=== PATIENT | female | born 1970 | race Caucasian/White ===

== ENCOUNTER 2016-09-02 20:41 | Emergency (ER) | payer MEDICARE, OTHER ==
--- NOTE | 2016-09-02 23:10 | DIAGNOSTIC IMAGING REPORT ---
PROCEDURE: XR ABD SERIES 2V ABD/1V CHEST INDICATION: ABDOMINAL PAIN TECHNIQUE: AP supine and upright views of the abdomen with single view of the chest. COMPARISON: None. FINDINGS: CHEST: Lungs are clear. Normal cardiovascular structures. Bony thorax is unremarkable. ABDOMEN: Bowel gas pattern is normal. Moderate stool. No soft-tissue masses or unusual calcifications. No evidence of free air. Osseous structures are unremarkable. IMPRESSION: 1. Negative acute abdominal series.
--- NOTE | 2016-09-02 23:48 | DIAGNOSTIC IMAGING REPORT ---
PROCEDURE: US ABDOMEN ULTRASOUND-LIMITED INDICATION: Abdominal pain, initial encounter TECHNIQUE: Edmonds scale and color Doppler sonographic images of the abdomen were obtained. COMPARISON: None. FINDINGS: Liver measures 16.4 cm with normal appearance. Gallbladder packed with gallstones. Difficult to visualize the gallbladder wall. CBD measures 2.8 mm. Negative Herring's sign. Normal body of the pancreas. Head and tail not well visualized. IVC is patent. Normal hepatopetal flow. Normal kidneys, both 10.6 cm. Ultrasound of the left upper quadrant demonstrates no evidence of a mass or inflammatory process. IMPRESSION: 1. Gallbladder packed with gallstones. Gallbladder wall not well visualized but negative Herring's sign and no biliary distention. 2. Negative left upper quadrant
--- NOTE | 2016-09-03 00:10 | ED ORDER SUMMARY ---
..... Patient: MARIANNE MCCALL OrderSheet [facility] VisitID: [id number] [place] [address] 45y, F Registration Date/Time: 09/02/2016 ORDER SHEET Weight: 81.6 kg (stated) Allergies: Codeine GENERAL ORDERS: Abd Series 2V Abd/1V Chest Urgent (21:02 09/02/2016 EKoroleva P.A.-C) (Ack 21:05 ALawrence ER Tech1) (21:47 MCampbell) Regional Construction Manager (Continuous) (21:02 09/02/2016 EKoroleva P.A.-C) (Ack 21:05 ALawrence ER Tech1) (21:19 AMcQuoid ER Tech1) Cardiac Panel Stat (21:02 09/02/2016 EKoroleva P.A.-C) (Ack 21:05 ALawrence ER Tech1) (21:53 DDavis R.N.) EKG - ER Stat (21:02 09/02/2016 EKoroleva P.A.-C) (Ack 21:05 ALawrence ER Tech1) (21:19 AMcQuoid ER Tech1) Lipase Urgent (21:03 09/02/2016 EKoroleva P.A.-C) (Ack 21:05 ALawrence ER Tech1) (21:34 DDavis R.N.) POC Glucose (21:03 09/02/2016 EKoroleva P.A.-C) (Ack 21:05 ALawrence ER Tech1) (21:19 AMcQuoid ER Tech1) Acetone, Serum Urgent (21:03 09/02/2016 EKoroleva P.A.-C) (Ack 21:05 ALawrence ER Tech1) (21:34 DDavis R.N.) UA-Culture if indicated Urgent (21:04 09/02/2016 EKoroleva P.A.-C) (Ack 21:05 ALawrence ER Tech1) (21:34 DDavis R.N.) Urine Urgent (21:04 09/02/2016 EKoroleva P.A.-C) (Ack 21:05 ALawrence ER Tech1) (21:34 DDavis R.N.) Vitals (BP) (21:06 09/02/2016 EKoroleva P.A.-C) (Ack 21:17 ALawrence ER Tech1) (21:34 DDavis R.N.) US Abdomen Limited (No) Urgent (22:29 09/02/2016 EKoroleva P.A.-C) (Ack 22:46 ALawrence ER Tech1) (0:00 TLewis R.N.) MEDICATION ORDERS: IV FLUIDS: Toradol IV 30 mg (NOW) (21:02 09/02/2016 EKoroleva P.A.-C) (22:13 DDavis R.N.) IV Saline Lock (21:02 09/02/2016 EKoroleva P.A.-C) (21:34 DDavis R.N.) Zofran IV 4 mg (NOW) (21:56 09/02/2016 EKoroleva P.A.-C) (22:13 DDavis R.N.) ORDER SHEET NOTES: [Electronically signed by Carlos Manuel Burton R.N. (00:18 09/03/2016)] [Electronically signed by Blake Cabrera Dr. (10:26 09/06/2016)] [Electronically locked/signed by Carlos Manuel Burton R.N. (00:18 09/03/2016)]
--- NOTE | 2016-09-03 00:10 | ED CLINICAL REPORT ---
Clinical Report - Physicians/Mid Levels [facility] [address] [place] [address] 09/02/2016 20:42 [id number] Time Seen: 20:55 Sep 02 2016. Arrived- By private vehicle. Historian- patient. HISTORY OF PRESENT ILLNESS Chief Complaint: FLANK PAIN. It is described as "pain" and it is described as located in the left flank. 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 The patient has had nausea. No vomiting or diarrhea. (patient reports left flank pain over the last 7 days worsening, with no associated nausea or vomiting. She reports she has been recently moving, had pain 3 days previously, then it went away and subsided 4 day, then has since returned. Denies any direct trauma or fall. Denies any shortness of breath or chest pain. Pain does worsen with deep inspiration. At times pain worsens with movement. No apparent association of pain to food. Denies any diarrhea, melena. Denies any change medications any recent foreign travel or any recent antibiotic use.). REVIEW OF SYSTEMS No constipation, black stools or stools, difficulty with urination or urinary frequency. No fever, headache, chest pain or difficulty breathing. All systems otherwise negative, except as recorded above. SOCIAL HISTORY Never smoker. No alcohol use or drug use. ADDITIONAL NOTES The nursing notes have been reviewed. PHYSICAL EXAM Vital Signs: 09/02/2016 20:53 BP: 191/77. HR: 77. RR: 18. O2 saturation: 100%. Temp: 98.4 F. Pain level now: 6/10. Appearance: Alert. No acute distress. Neck: Normal inspection. CVS: Normal heart rate and rhythm. Heart sounds normal. Respiratory: No respiratory distress. No respiratory distress. Breath sounds normal. Abdomen: Mild tenderness in the left side of the abdomen. No organomegaly. No mass. Scar present. Back: Normal inspection. No CVA tenderness. Skin: Skin warm. Normal skin color. LABS, X-RAYS, AND EKG EKG: EKG time: (2113). No acute process. No acute ischemia. Normal EKG. Rate: 65. Normal P waves. Normal GIDEON. Normal QRS complex. Normal axis. Normal ST and T waves and QT. The study has been interpreted contemporaneously. The study has been independently viewed by me. The EKG appears to be a good tracing. Abdominal Sonogram: Gallstones are present. Kidney normal. Spleen normal. No free fluid. . No gallbladder wall thickening, pericholecystic fluid, dilated common duct, common duct stones or hepatomegaly. The study was independently viewed by me and interpreted contemporaneously by me. Laboratory Tests: UA-Culture if indicated: (BONNIE: 09/02/2016 20:50) ( [facility] [place]:28[place] Final results Test Result Flag Units (Reference) URINE COLOR STRAW URINE APPEARANCE CLEAR URINE GLUCOSE NEGATIVE (NEGATIVE) URINE BILIRUBIN NEGATIVE (NEGATIVE) URINE KETONE NEGATIVE (NEGATIVE) URINE SPECIFIC GRAVITY <= 1.005 L (1.010-1.030) URINE PH 6.0 (5.0-8.0) URINE PROTEIN NEGATIVE (NEGATIVE) URINE UROBILINOGEN 0.2 EU/dL (0.2-1.0) URINE NITRITE NEGATIVE (NEGATIVE) URINE BLOOD TRACE-LYSED (NEGATIVE) URINE LEUK ESTERASE NEGATIVE (NEGATIVE) URINE RBC NONE SEEN rbc/hpf (0-1) URINE WBC NONE SEEN wbc/hpf (0-1) URINE EPITHELIAL CELLS RARE EPI/hpf (0-5) URINE BACTERIA NONE SEEN (NONE SEEN) URINE COMMENT CULT NOT INDICATED URINE CULTURES ARE SET-UP BASED ON THE FOLLOWING CRITERIA:POSITIVE NITRITEPOSITIVE LEUKOCYTE ESTERASEGREATER THAN 10 WHITE BLOOD CELLSMODERATE (2+) OR GREATER BACTERIA Urine: (BONNIE: 09/02/2016 20:50) ( [facility] [place] 21:25) Final results Test Result Flag Units (Reference) URINE NEGATIVE CBC w Diff: (BONNIE: 09/02/2016 21:35) ( [facility] [place] [facility] [place] 22:32) Final results Test Result Flag Units (Reference) WHITE BLOOD COUNT 6.1 K/uL (4.5-11.5) RED BLOOD COUNT 4.41 M/uL (4.00-5.20) HEMOGLOBIN 12.3 gm/dL (12.0-16.0) HEMATOCRIT 36.7 % (36.0-46.0) MEAN CELL VOLUME 83 fL (80-100) MEAN CORPUSCULAR HGB 28 pg (26-34) MEAN CORPUSCULAR HGB CONC 34 g/dL (31-37) RED CELL DISTRIBUTION WIDTH 14.1 % (11.6-14.8) PLATELET COUNT 277 K/uL (150-400) NEUTROPHIL % 49.9 L % (50-75) LYMPH % 36.3 % (25-40) MONO % 8.4 % (3-14) EOSINOPHIL % 4.5 H % (0-4) BASOPHIL % 0.9 % (0-2) Acetone, Serum: (BONNIE: 09/02/2016 21:35) ( [facility] [place] 21:54) Final results Test Result Flag Units (Reference) ACETONE, SERUM QUALITATIVE NEGATIVE (NEGATIVE) CHEM 13 PANEL: (BONNIE: 09/02/2016 21:35) ( [facility] [place] [facility] [place] 22:23) Final results Test Result Flag Units (Reference) GLUCOSE 176 H mg/dL (70-110) BUN 10 mg/dL (7-18) CREATININE 0.9 mg/dL (0.6-1.3) Estimated GFR >60 mL/min Estimated GFR- >60 mL/min Note: Persistent reduction over 3 months in eGFR<60 mL/min/1.73 m2 defines CKD. Patients with eGFR values>=60 mL/min/1.73 m2 may also have CKD if evidence ofpersistent proteinuria. Additional information may be foundat www.kidney.org. SODIUM 137 mmol/L (136-145) POTASSIUM 4.0 mmol/L (3.5-5.1) CHLORIDE 99 mmol/L (98-107) CARBON DIOXIDE 27 mmol/L (21-32) CALCIUM 9.8 mg/dL (8.5-10.1) TOTAL PROTEIN 8.4 H g/dL (6.4-8.2) ALBUMIN 4.6 g/dL (3.3-5.0) BILIRUBIN, TOTAL 0.3 mg/dL (0.0-1.0) ALKALINE PHOSPHATASE 71 U/L (46-116) AST (SGOT) 17 U/L (15-37) ALT (SGPT) 26 U/L (12-78) CPK 111 U/L (24-260) MAGNESIUM 2.0 mg/dL (1.8-2.4) LIPASE 197 U/L (73-393) TROPONIN I <0.05 L ng/mL (0.00-1.5) TROPONIN REFERENCE RANGE:<0.1 NEGATIVE0.1-1.5 INDETERMINANT>1.5 POSITIVE . PROGRESS AND PROCEDURES Course of Care: the patient is a pleasant 45 rolled female presenting for evaluation of left-sided flank pain. Pain is noted to be in the left upper quadrant on examination. Patient was initially evaluated by the mid-level provider. I had taken over care at the change of shift. Plan is follow-up on the patient's ultrasound. Rest of the patient's laboratory studies are unremarkable. Patient is nontoxic and in no acute distress. I performed my own independent examination and history. Agree with the assessment and plan. Ultrasound is remarkable for gallstones. Had discussion with patient in regards to biliary colic. The rest of the patient's laboratory studies are unremarkable. No signs of obstruction. Liver enzymes and pancreas enzymes are noted to be negative. The patient is a good outpatient candidate. Did not fill patient has a surgical abdomen at this time. Patient was encouraged to follow up with her surgeon in regards to further manage. Patient is able to tolerate by mouth in the emergency department. Because the patient is able to eat and drink while here in the emergency department, feel the patient is stable outpatient candidate. I discussed with patient her workup here in the emergency department as well as her diagnosis, home care, follow-up, and return precautions. All questions have been answered. The patient expressed understanding of these instructions and was agreeable to them. CLINICAL IMPRESSION Acute epigastric and left upper quadrant abdominal pain. 09/02/2016 23:15 BP: 118/81. HR: 82. RR: 18. O2 saturation: 99%. Moderate nausea with vomiting (acute). Blood pressure normal. Oxygen saturation normal. INSTRUCTIONS Warnings: GENERAL WARNINGS: Return or contact your physician immediately if your condition worsens or changes unexpectedly, if not improving as expected, or if other problems arise. SPECIFICALLY, return if you develop pain, fever, vomiting, the inability to keep fluids down, blood in vomitus, blood in diarrhea, fainting or lightheadedness. Prescription Medications: Zofran (orally disintegrating tablets) 4 mg: take 1 orally every 8 hours as needed for nausea and vomiting. Dispense ten (10). No refill. Substitution is permissible. Pepcid 20 mg: take 1 orally every 12 hours as needed for indigestion, upset stomach or heartburn. Dispense twenty (20). No refills. Substitution is permissible. Percocet 5 mg/325 mg: take 1 tablet orally every 6 hours as needed for pain. Dispense fifteen (15). No refill. Substitution is permissible. Follow-up: Return to the emergency department as needed. Follow up with your doctor in three days. Reason for referral: recheck today's concerns. Summary of care provided to patient via paper. Screening today revealed the patient's blood pressure to be in the normal range. The patient should follow up with a primary care provider for blood pressure management. Understanding of the discharge instructions verbalized by patient. (Electronically signed by Blake Cabrera Dr. 09/06/2016 10:26)
--- NOTE | 2016-09-03 00:10 | ED NURSING NOTES ---
Clinical Report - Nurses [facility] [address] [place] [address] 09/02/2016 20:42 Patient: MARIANNE MCCALL TRIAGE Triage time 20:53. Acuity: LEVEL 3. Chief Complaint: ABDOMINAL PAIN and NAUSEA. Alert. --21:03 Virgil Cheek R.N. 20:53 09/02/16. BP: 191/77. HR: 77. RR: 18 (regular and unlabored). O2 saturation: 100% on room air. Temp: 98.4 F (oral). Pain level now: 11/27. --21:03 Virgil Cheek R.N. Weight: 81.6 kg stated. Height/Length: 63 inches Per Patient. BMI: 31.9. --20:55 Virgil Cheek R.N. Allergies Codeine.(rash) --20:56 Virgil Cheek R.N. History Arrived by private vehicle. Historian: patient. ( pt states having left abdominal pain for 1 week with nausea). She has had nausea. Treatment HOSE TURNER: None. PAST MEDICAL HX: Denies current . SOCIAL HX: Never smoker. No alcohol use or drug use. No recent travel. NUTRITIONAL RISK ASSESSMENT: The nutritional risk assessment revealed no deficiencies. FUNCTIONAL ASSESSMENT: Functional assessment: no impairments noted. LEARNING NEEDS ASSESSMENT: The learning needs assessment revealed no barriers. SKIN INTEGRITY ASSESSMENT: Skin integrity risk assessment completed. No skin integrity risk identified. --21:03 Virgil Cheek R.N. PROBLEMS: Gallstone(s). Jaw Fracture. . Diabetes Mellitus. Migraine Headache. Chronic Headache. --21:02 Virgil Cheek R.N. Interventions ID band on patient. To treatment room. --21:03 Virgil Cheek R.N. PHYSICAL ASSESSMENT GENERAL / NEURO / PSYCH: Alert. Oriented X 4. RESPIRATORY: Respirations not labored. CVS: Capillary refill less than 2 seconds. --21:34 Virgil Cheek R.N. 21:34 09/02/16. BP: 123/69. HR: 73 (regular, normal rate and strong). RR: 20. O2 saturation: 100% on room air. Additional comments: NSR on monitor. --21:35 Virgil Cheek R.N. GENERAL / NEURO / PSYCH: Alert. Oriented X 4. HEENT: Mucous membranes are pink. RESPIRATORY: Respirations not labored. Breath sounds within normal limits. CVS: Normal sinus rhythm noted. Capillary refill less than 2 seconds. GI / : Abdomen soft. Abdominal tenderness in the left upper quadrant. Bowel sounds within normal limits. SKIN: Skin is warm and dry. --21:36 Virgil Cheek R.N. GENERAL / NEURO / PSYCH: Alert. Oriented X 4. --23:15 Virgil Cheek R.N. 23:15 09/02/16. BP: 118/81. HR: 82 (regular and normal rate). RR: 18. O2 saturation: 99% on room air. --23:15 Virgil Cheek R.N. NURSING PROGRESS NOTES 21:34 09/02/2016 Site #1 started via IV in the left antecubital space with an 20g angiocath; two attempts. Blood drawn: rainbow set. Labeled in the presence of the patient and sent to the lab. Saline lock flushed with saline. --21:34 Virgil Cheek R.N. monitoring tech, pulse oximeter and NIBP monitor placed on patient; monitor alarms on. Patient gowned. Head of bed elevated. Reassurance given. Two patient identifiers checked. Call light placed in reach. Side rails up x 1. Bed placed in lowest position. Brakes of bed on. Patient ready for evaluation- chart flagged. --21:36 Virgil Cheek R.N. 22:09/02/2016 Toradol IVP 30 mg given over 1 minute(s) via site #1. Allergies verified and confirmed 5 rights. IV patency established. IV site checked: no pain, redness, or swelling. IV flushed thoroughly pre- and post-medication administration. --22:13 Virgil Cheek R.N. 22:09/02/2016 Zofran (Ondansetron HCl) IVP 4 mg given over 1 minute(s) via site #1. --22:13 Virgil Cheek R.N. ( Blood sugar POC result at bedside = 191). --22:15 Virgil Cheek R.N. Point of care testing: performed by [email or web address]. Glucose: 191. --22:17 Virgil Cheek R.N. DISPOSITION / DISCHARGE 00:16 09/03/2016 Site #1 removed upon discharge. Catheter intact. Bandaid applied. --00:16 Carlos Manuel Burton R.N. Condition at departure: improved. No learning barriers present. Discharge instructions provided and reviewed with the patient. Reviewed medication(s) side effects, precautions, dosing and course information. Prescription(s) given to the patient (Zofran, Pepcid, Percocet). Patient verbalized understanding. Written instructions provided in Georgian. The patient was discharged by the physician. She was discharged home and unaccompanied at time of discharge. She left the Emergency Department ambulatory and via private vehicle. Patient driving. --00:18 Carlos Manuel Burton R.N. 00:16 09/03/16. BP: 122/79. HR: 85. RR: 18. O2 saturation: 100%. Pain level now 08/27. --00:18 Carlos Manuel Burton R.N. Departure time: 00:18. --00:18 Carlos Manuel Burton R.N. Locked/Released at 09/03/2016 0:18 by Carlos Manuel Burton R.N.
--- NOTE | 2016-09-03 00:10 | ED CLINICAL REPORT ---
Clinical Report - Physicians/Mid Levels [facility] [address] [place] [address] 09/02/2016 20:42 Patient: [id number] Time Seen: 20:55 Sep 02 2016. Arrived- By private vehicle. Historian- patient. HISTORY OF PRESENT ILLNESS Chief Complaint: FLANK PAIN. It is described as "pain" and it is described as located in the left flank. This started 7 - 10 days [place] and is still present. The patient has had nausea. No vomiting or diarrhea. (patient reports left flank pain over the last 7 days worsening, with no associated nausea or vomiting. She reports she has been recently moving, had pain 3 days previously, then it went away and subsided 4 day, then has since returned. Denies any direct trauma or fall. Denies any shortness of breath or chest pain. Pain does worsen with deep inspiration. At times pain worsens with movement. No apparent association of pain to food. Denies any diarrhea, melena. Denies any change medications any recent foreign travel or any recent antibiotic use.). REVIEW OF SYSTEMS No constipation, black stools or stools, difficulty with urination or urinary frequency. No fever, headache, chest pain or difficulty breathing. All systems otherwise negative, except as recorded above. SOCIAL HISTORY Never smoker. No alcohol use or drug use. ADDITIONAL NOTES The nursing notes have been reviewed. PHYSICAL EXAM Vital Signs: 09/02/2016 20:53 BP: 191/77. HR: 77. RR: 18. O2 saturation: 100%. Temp: 98.4 F. Pain level now: 6/10. Appearance: Alert. No acute distress. Neck: Normal inspection. CVS: Normal heart rate and rhythm. Heart sounds normal. Respiratory: No respiratory distress. No respiratory distress. Breath sounds normal. Abdomen: Mild tenderness in the left side of the abdomen. No organomegaly. No mass. Scar present. Back: Normal inspection. No CVA tenderness. Skin: Skin warm. Normal skin color. LABS, X-RAYS, AND EKG EKG: EKG time: (2113). No acute process. No acute ischemia. Normal EKG. Rate: 65. Normal P waves. Normal GIDEON. Normal QRS complex. Normal axis. Normal ST and T waves and QT. The study has been interpreted contemporaneously. The study has been independently viewed by me. The EKG appears to be a good tracing. Abdominal Sonogram: Gallstones are present. Kidney normal. Spleen normal. No free fluid. . No gallbladder wall thickening, pericholecystic fluid, dilated common duct, common duct stones or hepatomegaly. The study was independently viewed by me and interpreted contemporaneously by me. Laboratory Tests: UA-Culture if indicated: (BONNIE: 09/02/2016 20:50) ( [facility] 09/02/2016 21:28) Final results Test Result Flag Units (Reference) URINE COLOR STRAW URINE APPEARANCE CLEAR URINE GLUCOSE NEGATIVE (NEGATIVE) URINE BILIRUBIN NEGATIVE (NEGATIVE) URINE KETONE NEGATIVE (NEGATIVE) URINE SPECIFIC GRAVITY <= 1.005 L (1.010-1.030) URINE PH 6.0 (5.0-8.0) URINE PROTEIN NEGATIVE (NEGATIVE) URINE UROBILINOGEN 0.2 EU/dL (0.2-1.0) URINE NITRITE NEGATIVE (NEGATIVE) URINE BLOOD TRACE-LYSED (NEGATIVE) URINE LEUK ESTERASE NEGATIVE (NEGATIVE) URINE RBC NONE SEEN rbc/hpf (0-1) URINE WBC NONE SEEN wbc/hpf (0-1) URINE EPITHELIAL CELLS RARE EPI/hpf (0-5) URINE BACTERIA NONE SEEN (NONE SEEN) URINE COMMENT CULT NOT INDICATED URINE CULTURES ARE SET-UP BASED ON THE FOLLOWING CRITERIA:POSITIVE NITRITEPOSITIVE LEUKOCYTE ESTERASEGREATER THAN 10 WHITE BLOOD CELLSMODERATE (2+) OR GREATER BACTERIA Urine: (BONNIE: 09/02/2016 20:50) ( [facility] 09/02/2016 21:25) Final results Test Result Flag Units (Reference) URINE NEGATIVE CBC w Diff: (BONNIE: 09/02/2016 21:35) ( [facility] 09/02/2016 22:32) Final results Test Result Flag Units (Reference) WHITE BLOOD COUNT 6.1 K/uL (4.5-11.5) RED BLOOD COUNT 4.41 M/uL (4.00-5.20) HEMOGLOBIN 12.3 gm/dL (12.0-16.0) HEMATOCRIT 36.7 % (36.0-46.0) MEAN CELL VOLUME 83 fL (80-100) MEAN CORPUSCULAR HGB 28 pg (26-34) MEAN CORPUSCULAR HGB CONC 34 g/dL (31-37) RED CELL DISTRIBUTION WIDTH 14.1 % (11.6-14.8) PLATELET COUNT 277 K/uL (150-400) NEUTROPHIL % 49.9 L % (50-75) LYMPH % 36.3 % (25-40) MONO % 8.4 % (3-14) EOSINOPHIL % 4.5 H % (0-4) BASOPHIL % 0.9 % (0-2) Acetone, Serum: (BONNIE: 09/02/2016 21:35) ( [facility] 09/02/2016 21:54) Final results Test Result Flag Units (Reference) ACETONE, SERUM QUALITATIVE NEGATIVE (NEGATIVE) CHEM 13 PANEL: (BONNIE: 09/02/2016 21:35) ( [facility] 09/02/2016 22:23) Final results Test Result Flag Units (Reference) GLUCOSE 176 H mg/dL (70-110) BUN 10 mg/dL (7-18) CREATININE 0.9 mg/dL (0.6-1.3) Estimated GFR >60 mL/min Estimated GFR- >60 mL/min Note: Persistent reduction over 3 months in eGFR<60 mL/min/1.73 m2 defines CKD. Patients with eGFR values>=60 mL/min/1.73 m2 may also have CKD if evidence ofpersistent proteinuria. Additional information may be foundat www.kidney.org. SODIUM 137 mmol/L (136-145) POTASSIUM 4.0 mmol/L (3.5-5.1) CHLORIDE 99 mmol/L (98-107) CARBON DIOXIDE 27 mmol/L (21-32) CALCIUM 9.8 mg/dL (8.5-10.1) TOTAL PROTEIN 8.4 H g/dL (6.4-8.2) ALBUMIN 4.6 g/dL (3.3-5.0) BILIRUBIN, TOTAL 0.3 mg/dL (0.0-1.0) ALKALINE PHOSPHATASE 71 U/L (46-116) AST (SGOT) 17 U/L (15-37) ALT (SGPT) 26 U/L (12-78) CPK 111 U/L (24-260) MAGNESIUM 2.0 mg/dL (1.8-2.4) LIPASE 197 U/L (73-393) TROPONIN I <0.05 L ng/mL (0.00-1.5) TROPONIN REFERENCE RANGE:<0.1 NEGATIVE0.1-1.5 INDETERMINANT>1.5 POSITIVE . PROGRESS AND PROCEDURES Course of Care: the patient is a pleasant 45 rolled female presenting for evaluation of left-sided flank pain. Pain is noted to be in the left upper quadrant on examination. Patient was initially evaluated by the mid-level provider. I had taken over care at the change of shift. Plan is follow-up on the patient's ultrasound. Rest of the patient's laboratory studies are unremarkable. Patient is nontoxic and in no acute distress. I performed my own independent examination and history. Agree with the assessment and plan. Ultrasound is remarkable for gallstones. Had discussion with patient in regards to biliary colic. The rest of the patient's laboratory studies are unremarkable. No signs of obstruction. Liver enzymes and pancreas enzymes are noted to be negative. The patient is a good outpatient candidate. Did not fill patient has a surgical abdomen at this time. Patient was encouraged to follow up with her surgeon in regards to further manage. Patient is able to tolerate by mouth in the emergency department. Because the patient is able to eat and drink while here in the emergency department, feel the patient is stable outpatient candidate. I discussed with patient her workup here in the emergency department as well as her diagnosis, home care, follow-up, and return precautions. All questions have been answered. The patient expressed understanding of these instructions and was agreeable to them. CLINICAL IMPRESSION Acute epigastric and left upper quadrant abdominal pain. 09/02/2016 23:15 BP: 118/81. HR: 82. RR: 18. O2 saturation: 99%. Moderate nausea with vomiting (acute). Blood pressure normal. Oxygen saturation normal. INSTRUCTIONS Warnings: GENERAL WARNINGS: Return or contact your physician immediately if your condition worsens or changes unexpectedly, if not improving as expected, or if other problems arise. SPECIFICALLY, return if you develop pain, fever, vomiting, the inability to keep fluids down, blood in vomitus, blood in diarrhea, fainting or lightheadedness. Prescription Medications: Zofran (orally disintegrating tablets) 4 mg: take 1 orally every 8 hours as needed for nausea and vomiting. Dispense ten (10). No refill. Substitution is permissible. Pepcid 20 mg: take 1 orally every 12 hours as needed for indigestion, upset stomach or heartburn. Dispense twenty (20). No refills. Substitution is permissible. Percocet 5 mg/325 mg: take 1 tablet orally every 6 hours as needed for pain. Dispense fifteen (15). No refill. Substitution is permissible. Follow-up: Return to the emergency department as needed. Follow up with your doctor in three days. Reason for referral: recheck today's concerns. Summary of care provided to patient via paper. Screening today revealed the patient's blood pressure to be in the normal range. The patient should follow up with a primary care provider for blood pressure management. Understanding of the discharge instructions verbalized by patient. (Electronically signed by Blake Cabrera Dr. 09/06/2016 10:26)
--- NOTE | 2016-09-03 00:10 | ED ORDER SUMMARY ---
..... Patient: MARIANNE MCCALL OrderSheet [facility] VisitID: [id number] [place] [address] 45y, F Registration Date/Time: 09/02/2016 ORDER SHEET Weight: 81.6 kg (stated) Allergies: Codeine GENERAL ORDERS: Abd Series 2V Abd/1V Chest Urgent (21:02 09/02/2016 EKoroleva P.A.-C) (Ack 21:05 ALawrence ER Tech1) (21:47 MCampbell) Turner Machine (Continuous) (21:02 09/02/2016 EKoroleva P.A.-C) (Ack 21:05 ALawrence ER Tech1) (21:19 AMcQuoid ER Tech1) Cardiac Panel Stat (21:02 09/02/2016 EKoroleva P.A.-C) (Ack 21:05 ALawrence ER Tech1) (21:53 DDavis R.N.) EKG - ER Stat (21:02 09/02/2016 EKoroleva P.A.-C) (Ack 21:05 ALawrence ER Tech1) (21:19 AMcQuoid ER Tech1) Lipase Urgent (21:03 09/02/2016 EKoroleva P.A.-C) (Ack 21:05 ALawrence ER Tech1) (21:34 DDavis R.N.) POC Glucose (21:03 09/02/2016 EKoroleva P.A.-C) (Ack 21:05 ALawrence ER Tech1) (21:19 AMcQuoid ER Tech1) Acetone, Serum Urgent (21:03 09/02/2016 EKoroleva P.A.-C) (Ack 21:05 ALawrence ER Tech1) (21:34 DDavis R.N.) UA-Culture if indicated Urgent (21:04 09/02/2016 EKoroleva P.A.-C) (Ack 21:05 ALawrence ER Tech1) (21:34 DDavis R.N.) Urine Urgent (21:04 09/02/2016 EKoroleva P.A.-C) (Ack 21:05 ALawrence ER Tech1) (21:34 DDavis R.N.) Vitals (BP) (21:06 09/02/2016 EKoroleva P.A.-C) (Ack 21:17 ALawrence ER Tech1) (21:34 DDavis R.N.) US Abdomen Limited (No) Urgent (22:29 09/02/2016 EKoroleva P.A.-C) (Ack 22:46 ALawrence ER Tech1) (0:00 TLewis R.N.) MEDICATION ORDERS: IV FLUIDS: Toradol IV 30 mg (NOW) (21:02 09/02/2016 EKoroleva P.A.-C) (22:13 DDavis R.N.) IV Saline Lock (21:02 09/02/2016 EKoroleva P.A.-C) (21:34 DDavis R.N.) Zofran IV 4 mg (NOW) (21:56 09/02/2016 EKoroleva P.A.-C) (22:13 DDavis R.N.) ORDER SHEET NOTES: [Electronically signed by Carlos Manuel Burton R.N. (00:18 09/03/2016)] [Electronically signed by Blake Cabrera Dr. (10:26 09/06/2016)] [Electronically locked/signed by Carlos Manuel Burton R.N. (00:18 09/03/2016)]
--- NOTE | 2016-09-03 00:10 | ED NURSING NOTES ---
Clinical Report - Nurses [facility] [address] [place] [address] 09/02/2016 20:42 Patient: MARIANNE MCCALL TRIAGE Triage time 20:53. Acuity: LEVEL 3. Chief Complaint: ABDOMINAL PAIN and NAUSEA. Alert. --21:03 Virgil Cheek R.N. 20:53 09/02/16. BP: 191/77. HR: 77. RR: 18 (regular and unlabored). O2 saturation: 100% on room air. Temp: 98.4 F (oral). Pain level now: 11/27. --21:03 Virgil Cheek R.N. Weight: 81.6 kg stated. Height/Length: 63 inches Per Patient. BMI: 31.9. --20:55 Virgil Cheek R.N. Allergies Codeine.(rash) --20:56 Virgil Cheek R.N. History Arrived by private vehicle. Historian: patient. ( pt states having left abdominal pain for 1 week with nausea). She has had nausea. Treatment STAFF RN: None. PAST MEDICAL HX: Denies current . SOCIAL HX: Never smoker. No alcohol use or drug use. No recent travel. NUTRITIONAL RISK ASSESSMENT: The nutritional risk assessment revealed no deficiencies. FUNCTIONAL ASSESSMENT: Functional assessment: no impairments noted. LEARNING NEEDS ASSESSMENT: The learning needs assessment revealed no barriers. SKIN INTEGRITY ASSESSMENT: Skin integrity risk assessment completed. No skin integrity risk identified. --21:03 Virgil Cheek R.N. PROBLEMS: Gallstone(s). Jaw Fracture. . Diabetes Mellitus. Migraine Headache. Chronic Headache. --21:02 Virgil Cheek R.N. Interventions ID band on patient. To treatment room. --21:03 Virgil Cheek R.N. PHYSICAL ASSESSMENT GENERAL / NEURO / PSYCH: Alert. Oriented X 4. RESPIRATORY: Respirations not labored. CVS: Capillary refill less than 2 seconds. --21:34 Virgil Cheek R.N. 21:34 09/02/16. BP: 123/69. HR: 73 (regular, normal rate and strong). RR: 20. O2 saturation: 100% on room air. Additional comments: NSR on monitor. --21:35 Virgil Cheek R.N. GENERAL / NEURO / PSYCH: Alert. Oriented X 4. HEENT: Mucous membranes are pink. RESPIRATORY: Respirations not labored. Breath sounds within normal limits. CVS: Normal sinus rhythm noted. Capillary refill less than 2 seconds. GI / : Abdomen soft. Abdominal tenderness in the left upper quadrant. Bowel sounds within normal limits. SKIN: Skin is warm and dry. --21:36 Virgil Cheek R.N. GENERAL / NEURO / PSYCH: Alert. Oriented X 4. --23:15 Virgil Cheek R.N. 23:15 09/02/16. BP: 118/81. HR: 82 (regular and normal rate). RR: 18. O2 saturation: 99% on room air. --23:15 Virgil Cheek R.N. NURSING PROGRESS NOTES 21:34 09/02/2016 Site #1 started via IV in the left antecubital space with an 20g angiocath; two attempts. Blood drawn: rainbow set. Labeled in the presence of the patient and sent to the lab. Saline lock flushed with saline. --21:34 Virgil Cheek R.N. petroleum refinery operator, pulse oximeter and NIBP monitor placed on patient; monitor alarms on. Patient gowned. Head of bed elevated. Reassurance given. Two patient identifiers checked. Call light placed in reach. Side rails up x 1. Bed placed in lowest position. Brakes of bed on. Patient ready for evaluation- chart flagged. --21:36 Virgil Cheek R.N. 22:09/02/2016 Toradol IVP 30 mg given over 1 minute(s) via site #1. Allergies verified and confirmed 5 rights. IV patency established. IV site checked: no pain, redness, or swelling. IV flushed thoroughly pre- and post-medication administration. --22:13 Virgil Cheek R.N. 22:09/02/2016 Zofran (Ondansetron HCl) IVP 4 mg given over 1 minute(s) via site #1. --22:13 Virgil Cheek R.N. ( Blood sugar POC result at bedside = 191). --22:15 Virgil Cheek R.N. Point of care testing: performed by [facility]. Glucose: 191. --22:17 Virgil Cheek R.N. DISPOSITION / DISCHARGE 00:16 09/03/2016 Site #1 removed upon discharge. Catheter intact. Bandaid applied. --00:16 Carlos Manuel Burton R.N. Condition at departure: improved. No learning barriers present. Discharge instructions provided and reviewed with the patient. Reviewed medication(s) side effects, precautions, dosing and course information. Prescription(s) given to the patient (Zofran, Pepcid, Percocet). Patient verbalized understanding. Written instructions provided in [place]. The patient was discharged by the physician. She was discharged home and unaccompanied at time of discharge. She left the Emergency Department ambulatory and via private vehicle. Patient driving. --00:18 Carlos Manuel Burton R.N. 00:16 09/03/16. BP: 122/79. HR: 85. RR: 18. O2 saturation: 100%. Pain level now 08/27. --00:18 Carlos Manuel Burton R.N. Departure time: 00:18. --00:18 Carlos Manuel Burton R.N. Locked/Released at 09/03/2016 0:18 by Carlos Manuel Burton R.N.
--- NOTE | 2016-09-06 10:27 | ED MED RECONCILIATION SUMMARY ---
Patient: MARIANNE MCCALL Medication Reconciliation Report [facility] VisitID: [id number] [place] [address] 45y, F Registration Date/Time: 09/02/2016 Weight: 81.6 kg Height/Length: 63 in. BMI: 31.9 ALLERGIES: Codeine The patient's Home Medications are listed below: Not obtained. The source(s) of the original Home Medication information: Not obtained. The following Medications were given to the patient in the Emergency Department: Toradol [IVP] IVP 30 mg, administered: 09/02/2016 10:03:00 PM Zofran [IVP] IVP 4 mg, administered: 09/02/2016 10:03:00 PM The following Medications were prescribed to the patient: Zofran (orally disintegrating tablets) 4 mg: take 1 orally every 8 hours as needed for nausea and vomiting. Dispense ten (10). No refill. Substitution is permissible. -- Blake Cabrera Dr. Pepcid 20 mg: take 1 orally every 12 hours as needed for indigestion, upset stomach or heartburn. Dispense twenty (20). No refills. Substitution is permissible. -- Blake Cabrera Dr. Percocet 5 mg/325 mg: take 1 tablet orally every 6 hours as needed for pain. Dispense fifteen (15). No refill. Substitution is permissible. -- Blake Cabrera Dr.
--- NOTE | 2016-09-06 10:27 | ED MAR SUMMARY ---
..... Medication Administration Record [facility] [address] [place] [place] [address] Patient: MARIANNE MCCALL Visit ID: [id number] 45y, F Weight: 81.6 kg Height/Length: 63 in BMI: 31.9 ALLERGIES: Codeine Given 22:09/02/2016 Virgil Cheek R.N. Medication Administered: TORADOL [IVP], Dose: 30 mg IVP over 1 minute(s), Site: #1 left AC. Medication Ordered: Toradol IV 30 mg (NOW). Given 22:03 09/02/2016 Virgil Cheek R.N. Medication Administered: ZOFRAN [IVP] (ONDANSETRON HCL), Dose: 4 mg IVP over 1 minute(s), Site: #1 left AC. Medication Ordered: Zofran IV 4 mg (NOW).
--- NOTE | 2016-09-06 10:27 | ED DISCHARGE INSTRUCTIONS ---
Patient: MARIANNE MCCALL General Instructions [facility] VisitID: [id number] [place] [address] 45y, F Registration Date/Time: 09/02/2016 Acute epigastric and left upper quadrant abdominal pain. 09/02/2016 23:15 BP: 118/81. HR: 82. RR: 18. O2 saturation: 99%. Moderate nausea with vomiting (acute). Blood pressure normal. Oxygen saturation normal. INSTRUCTIONS Warnings: GENERAL WARNINGS: Return or contact your physician immediately if your condition worsens or changes unexpectedly, if not improving as expected, or if other problems arise. SPECIFICALLY, return if you develop pain, fever, vomiting, the inability to keep fluids down, blood in vomitus, blood in diarrhea, fainting or lightheadedness. Prescription Medications: Zofran (orally disintegrating tablets) 4 mg: take 1 orally every 8 hours as needed for nausea and vomiting. Dispense ten (10). No refill. Substitution is permissible. Pepcid 20 mg: take 1 orally every 12 hours as needed for indigestion, upset stomach or heartburn. Dispense twenty (20). No refills. Substitution is permissible. Percocet 5 mg/325 mg: take 1 tablet orally every 6 hours as needed for pain. Dispense fifteen (15). No refill. Substitution is permissible. Follow-up: Return to the emergency department as needed. Follow up with your doctor in three days. Reason for referral: recheck today's concerns. Summary of care provided to patient via paper. Screening today revealed the patient's blood pressure to be in the normal range. The patient should follow up with a primary care provider for blood pressure management. Understanding of the discharge instructions verbalized by patient. ADDITIONAL INFORMATION Abdominal Pain, Unknown Cause (Female) The exact cause of your abdominal (stomach) pain is not certain. This does not mean that this is something to worry about, or the right tests were not done. Everyone likes to know the exact cause of the problem, but sometimes with abdominal pain, there is no clear-cut cause, and this could be a good thing. The good news is that your symptoms can be treated, and you will feel better. Your condition does not seem serious now; however, sometimes the signs of a serious problem may take more time to appear. For this reason,it is important for you to watch for any new symptoms, problems,or worsening of your condition. Over the next few days, the abdominal pain may come and go, or be continuous. Other common symptoms can include nausea and vomiting. Sometimes it can be difficult to tell if you feel nauseous, you may just feel bad and not associate that feeling with nausea. Constipation, diarrhea, and a fever may go along with the pain. The pain may continue even if treated correctly over the following days. Depending on how things go, sometimes the cause can become clear and may require further or different treatment. Additional evaluations, medications, or tests may be needed. Home care Your health care provider may prescribe medications for pain, symptoms, or an infection. Follow the health care provider's instructions for taking these medications. General care Rest until your next exam. No strenuous activities. Try to find positions that ease discomfort. A small pillow placed on the abdomen may help relieve pain. Something warm on your abdomen (such as a heating pad) may help, but be careful not to burn yourself. Diet Do not force yourself to eat, especially if having cramps, vomiting, or diarrhea. Water is important so you do not get dehydrated. Soup may also be good. Sports drinks may also help, especially if they are not too acidic. Make sure you don't drink sugary drinks as this can make things worse. Take liquids in small amounts. Do not guzzle them. Caffeine sometimes makes the pain and cramping worse. Avoid dairy products if you have vomiting or diarrhea. Don't eat large amounts at a time. Wait a few minutes between bites. Eat a diet low in fiber (called a low-residue diet). Foods allowed include refined breads, white rice, fruit and vegetable juices without pulp, tender meats. These foods will pass more easily through the intestine. Avoid whole-grain foods, whole fruits and vegetables, meats, seeds and nuts, fried or fatty foods, dairy, alcohol and spicy foods until your symptoms go away. Follow-up care Follow up with your health care provider as instructed, or if your pain does not begin to improve in the next 24 hours. When to seek medical care Seek prompt medical care if any of the following occur: Pain gets worse or moves to the right lower abdomen New or worsening vomiting or diarrhea Swelling of the abdomen Unable to pass stool for more than three days Fever of 100.4F (38C) or higher, or as directed by your healthcare provider. Blood in vomit or bowel movements (dark red or black color) Jaundice (yellow color of eyes and skin) Weakness, dizziness Chest, arm, back, neck or jaw pain Unexpected vaginal bleeding or missed period Call 911 Call emergency services if any of the following occur: Trouble breathing Confusion Fainting or loss of consciousness Rapid heart rate Seizure Ondansetron Oral disintegrating tablet What is this medicine? ONDANSETRON (on NASIM se kenia) is used to treat nausea and vomiting caused by chemotherapy. It is also used to prevent or treat nausea and vomiting after surgery. How should I use this medicine? These tablets are made to dissolve in the mouth. Do not try to push the tablet through the foil backing. With dry hands, peel away the foil backing and gently remove the tablet. Place the tablet in the mouth and allow it to dissolve, then swallow. While you may take these tablets with water, it is not necessary to do so. Talk to your inter com servicer regarding the use of this medicine in children. Special care may be needed. What side effects may I notice from receiving this medicine? Side effects that you should report to your doctor or health personal care service provider as soon as possible: allergic reactions like skin rash, itching or hives, swelling of the face, lips, or tongue breathing problems dizziness fast or irregular heartbeat feeling faint or lightheaded, falls fever and chills swelling of the hands and feet tightness in the chest Side effects that usually do not require medical attention (report to your doctor or health personal care service provider if they continue or are bothersome): constipation or diarrhea headache What may interact with this medicine? Do not take this medicine with any of the following medications: -apomorphine -cisapride -dofetilide -dronedarone -pimozide -thioridazine -ziprasidone This medicine may also interact with the following medications: -carbamazepine -phenytoin -rifampicin -tramadol -other medicines that prolong the QT interval (cause an abnormal heart rhythm) What if I miss a dose? If you miss a dose, take it as soon as you can. If it is almost time for your next dose, take only that dose. Do not take double or extra doses. Where should I keep my medicine? Keep out of the reach of children. Store between 2 and 30 degrees C (36 and 86 degrees F). Throw away any unused medicine after the expiration date. What should I tell my health care provider before I take this medicine? They need to know if you have any of these conditions: heart disease history of irregular heartbeat liver disease low levels of magnesium or potassium in the blood an unusual or allergic reaction to ondansetron, granisetron, other medicines, foods, dyes, or preservatives or trying to get breast-feeding What should I watch for while using this medicine? Check with your doctor or health personal care service provider as soon as you can if you have any sign of an allergic reaction. Famotidine Oral tablet What is this medicine? FAMOTIDINE (fa VINAYAK batista) is a type of antihistamine that blocks the release of stomach acid. It is used to treat stomach or intestinal ulcers. It can also relieve heartburn from acid reflux. How should I use this medicine? Take this medicine by mouth with a glass of water. Follow the directions on the prescription label. If you only take this medicine once a day, take it at bedtime. Take your doses at regular intervals. Do not take your medicine more often than directed. Talk to your inter com servicer regarding the use of this medicine in children. Special care may be needed. What side effects may I notice from receiving this medicine? Side effects that you should report to your doctor or health personal care service provider as soon as possible: agitation, nervousness confusion hallucinations skin rash, itching Side effects that usually do not require medical attention (report to your doctor or health personal care service provider if they continue or are bothersome): constipation diarrhea dizziness headache What may interact with this medicine? delavirdine itraconazole ketoconazole What if I miss a dose? If you miss a dose, take it as soon as you can. If it is almost time for your next dose, take only that dose. Do not take double or extra doses. Where should I keep my medicine? Keep out of the reach of children. Store at room temperature between 15 and 30 degrees C (59 and 86 degrees F). Do not freeze. Throw away any unused medicine after the expiration date. What should I tell my health care provider before I take this medicine? They need to know if you have any of these conditions: kidney or liver disease trouble swallowing an unusual or allergic reaction to famotidine, other medicines, foods, dyes, or preservatives or trying to get breast-feeding What should I watch for while using this medicine? Tell your doctor or health personal care service provider if your condition does not start to get better or if it gets worse. Finish the full course of tablets prescribed, even if you feel better. Do not take with aspirin, ibuprofen or other antiinflammatory medicines. These can make your condition worse. Do not smoke cigarettes or drink alcohol. These cause irritation in your stomach and can increase the time it will take for ulcers to heal. If you get black, tarry stools or vomit up what looks like coffee grounds, call your doctor or health personal care service provider at once. You may have a bleeding ulcer. Oxycodone Hydrochloride, Acetaminophen Oral tablet What is this medicine? ACETAMINOPHEN; OXYCODONE (a set a ROBYN lloyd fen; ox i KOE done) is a pain reliever. It is used to treat mild to moderate pain. How should I use this medicine? Take this medicine by mouth with a full glass of water. Follow the directions on the prescription label. Take your medicine at regular intervals. Do not take your medicine more often than directed. Talk to your inter com servicer regarding the use of this medicine in children. Special care may be needed. Patients over 65 years old may have a stronger reaction and need a smaller dose. What side effects may I notice from receiving this medicine? Side effects that you should report to your doctor or health personal care service provider as soon as possible: allergic reactions like skin rash, itching or hives, swelling of the face, lips, or tongue breathing difficulties, wheezing confusion light headedness or fainting spells severe stomach pain yellowing of the skin or the whites of the eyes Side effects that usually do not require medical attention (report to your doctor or health personal care service provider if they continue or are bothersome): dizziness drowsiness nausea vomiting What may interact with this medicine? alcohol antihistamines barbiturates like amobarbital, butalbital, butabarbital, methohexital, pentobarbital, phenobarbital, thiopental, and secobarbital benztropine drugs for bladder problems like solifenacin, trospium, oxybutynin, tolterodine, hyoscyamine, and methscopolamine drugs for breathing problems like ipratropium and tiotropium drugs for certain stomach or intestine problems like propantheline, homatropine methylbromide, glycopyrrolate, atropine, belladonna, and dicyclomine general anesthetics like etomidate, ketamine, nitrous oxide, propofol, desflurane, enflurane, halothane, isoflurane, and sevoflurane medicines for depression, anxiety, or psychotic disturbances medicines for sleep muscle relaxants naltrexone narcotic medicines (opiates) for pain phenothiazines like perphenazine, thioridazine, chlorpromazine, mesoridazine, fluphenazine, prochlorperazine, promazine, and trifluoperazine scopolamine tramadol trihexyphenidyl What if I miss a dose? If you miss a dose, take it as soon as you can. If it is almost time for your next dose, take only that dose. Do not take double or extra doses. Where should I keep my medicine? Keep out of the reach of children. This medicine can be abused. Keep your medicine in a safe place to protect it from theft. Do not share this medicine with anyone. Selling or giving away this medicine is dangerous and against the law. Store at room temperature between 20 and 25 degrees C (68 and 77 degrees F). Keep container tightly closed. Protect from light. This medicine may cause accidental overdose and if it is taken by other adults, children, or pets. Flush any unused medicine down the toilet to reduce the chance of harm. Do not use the medicine after the expiration date. What should I tell my health care provider before I take this medicine? They need to know if you have any of these conditions: brain tumor Crohn's disease, inflammatory bowel disease, or ulcerative colitis drink more than 3 alcohol containing drinks per day drug abuse or addiction head injury heart or circulation problems kidney disease or problems going to the bathroom liver disease lung disease, asthma, or breathing problems an unusual or allergic reaction to acetaminophen, oxycodone, other opioid analgesics, other medicines, foods, dyes, or preservatives or trying to get breast-feeding What should I watch for while using this medicine? Tell your doctor or health personal care service provider if your pain does not go away, if it gets worse, or if you have new or a different type of pain. You may develop tolerance to the medicine. Tolerance means that you will need a higher dose of the medication for pain relief. Tolerance is normal and is expected if you take this medicine for a long time. Do not suddenly stop taking your medicine because you may develop a severe reaction. Your body becomes used to the medicine. This does NOT mean you are addicted. Addiction is a behavior related to getting and using a drug for a non-medical reason. If you have pain, you have a medical reason to take pain medicine. Your doctor will tell you how much medicine to take. If your doctor wants you to stop the medicine, the dose will be slowly lowered over time to avoid any side effects. You may get drowsy or dizzy. Do not drive, use machinery, or do anything that needs mental alertness until you know how this medicine affects you. Do not stand or sit up quickly, especially if you are an older patient. This reduces the risk of dizzy or fainting spells. Alcohol may interfere with the effect of this medicine. Avoid alcoholic drinks. There are different types of narcotic medicines (opiates) for pain. If you take more than one type at the same time, you may have more side effects. Give your health care provider a list of all medicines you use. Your doctor will tell you how much medicine to take. Do not take more medicine than directed. Call emergency for help if you have problems breathing. The medicine will cause constipation. Try to have a bowel movement at least every 2 to 3 days. If you do not have a bowel movement for 3 days, call your doctor or health personal care service provider. Do not take Tylenol (acetaminophen) or medicines that have acetaminophen with this medicine. Too much acetaminophen can be very dangerous. Many nonprescription medicines contain acetaminophen. Always read the labels carefully to avoid taking more acetaminophen. You have been given the following additional information: Abdominal Pain, Unknown Cause, (Female) Ondansetron Oral disintegrating tablet Famotidine Oral tablet Oxycodone Hydrochloride, Acetaminophen Oral tablet (Electronically signed by Blake Cabrera Dr. 09/06/2016 10:26)
--- NOTE | 2016-09-06 10:27 | ED MED RECONCILIATION SUMMARY ---
Patient: MARIANNE MCCALL Medication Reconciliation Report [facility] VisitID: [id number] [place] [address] 45y, F Registration Date/Time: 09/02/2016 Weight: 81.6 kg Height/Length: 63 in. BMI: 31.9 ALLERGIES: Codeine The patient's Home Medications are listed below: Not obtained. The source(s) of the original Home Medication information: Not obtained. The following Medications were given to the patient in the Emergency Department: Toradol [IVP] IVP 30 mg, administered: 09/02/2016 10:03:00 PM Zofran [IVP] IVP 4 mg, administered: 09/02/2016 10:03:00 PM The following Medications were prescribed to the patient: Zofran (orally disintegrating tablets) 4 mg: take 1 orally every 8 hours as needed for nausea and vomiting. Dispense ten (10). No refill. Substitution is permissible. -- Blake Cabrera Dr. Pepcid 20 mg: take 1 orally every 12 hours as needed for indigestion, upset stomach or heartburn. Dispense twenty (20). No refills. Substitution is permissible. -- Blake Cabrera Dr. Percocet 5 mg/325 mg: take 1 tablet orally every 6 hours as needed for pain. Dispense fifteen (15). No refill. Substitution is permissible. -- Blake Cabrera Dr.
--- NOTE | 2016-09-06 10:27 | ED MAR SUMMARY ---
..... Medication Administration Record [facility] [address] [place] [address] Patient: MARIANNE MCCALL Visit ID: [id number] 45y, F Weight: 81.6 kg Height/Length: 63 in BMI: 31.9 ALLERGIES: Codeine Given 22:09/02/2016 Virgil Cheek R.N. Medication Administered: TORADOL [IVP], Dose: 30 mg IVP over 1 minute(s), Site: #1 left AC. Medication Ordered: Toradol IV 30 mg (NOW). Given 22:03 09/02/2016 Virgil Cheek R.N. Medication Administered: ZOFRAN [IVP] (ONDANSETRON HCL), Dose: 4 mg IVP over 1 minute(s), Site: #1 left AC. Medication Ordered: Zofran IV 4 mg (NOW).
== END 2016-09-03 00:16 | disposition home or self-care (01) ==
LOC: ED SRH 20:41
DX: R10.13 Epigastric pain (principal); R10.12 Left upper quadrant pain; R11.2 Nausea with vomiting, unspecified
CPT/HCPCS: 90004; 90098; 90100; 90301; 90616; 92235; 92610; 92720; 93070; 95059